=== PATIENT | female | born 1995 | race Two or more races ===

== ENCOUNTER 2017-08-28 23:29 | Emergency (ER) | payer OTHER ==
[~2017-08-28] VITALS: Ht 162.6 cm; Wt 47.6 kg
[2017-08-29 00:05] LABS: Urine Bacteria NONE SEEN /hpf (None Seen); Urine Blood Negative /uL (Negative); Urine Mucus FEW (None Seen); Urine Specific Gravity 1.037 (1.001-1.035); Urine WBC 2 /hpf (0 - 5)
[2017-08-29 01:04] LABS: Basophils # (auto) 0 uL; Basophils % (auto) 0.6 % (0.0-2.0); Eosinophils # (auto) 0.1 uL; Eosinophils % (auto) 1.2 % (0.0-7.0); Hematocrit 37.5 % (36.0-46.0); Hemoglobin 12.4 g/dL (12.2-16.2); Lymphocytes # (auto) 1.9 uL; Lymphocytes % (auto) 34.6 % (10.0-50.0); Mean Corpuscular Hemoglobin 28.7 pg (28.0-32.0); Mean Corpuscular Hgb Conc. 33.1 g/dL (32.0-36.0); Mean Corpuscular Volume 86.8 fL (80.0-100.0); Monocytes # (auto) 0.4 uL; Monocytes % (auto) 7.2 % (0.0-12.0); Neutrophils % (auto) 56.4 % (37.0-80.0); Nucleated Red Blood Cells % 0.1 %; Platelet Count (auto) 193 10^3/uL (140-450); Red Blood Cells 4.33 10^6/uL (4.0-5.20); Red Cell Distribution Width 13.8 % (11.8-14.3); White Blood Cell 5.4 10^3/uL (4.4-10.8)
[2017-08-29 02:01] LABS: Albumin 3.8 g/dL (3.4-5.0); BUN/Creatinine Ratio 15.9; Bilirubin, Total 0.3 mg/dL (0.2-1.0); Calcium 9.2 mg/dL (8.5-10.1); Total Protein 7.3 g/dL (6.4-8.2)
[2017-08-29 02:52] LABS: Potassium 3.8 mmol/L (3.5-5.1)
[2017-08-29 07:10] VITALS: BP 98/71
[2017-08-29] MEDS ORDERED: PANTOPRAZOLE 40 MG TAB PO ONE (07:30)
== END 2017-08-29 07:22 | disposition home or self-care (01) ==
LOC: ER 23:32
DX: N39.0 Urinary tract infection, site not specified (principal)
CPT/HCPCS: 36415; 80053; 81001; 81025; 85025

== ENCOUNTER 2021-07-19 22:30 | Emergency (ER) | payer MEDICAID ==
[~2021-07-19] VITALS: Ht 162.6 cm; Wt 47.6 kg
[2021-07-19 22:30] VITALS: BP 105/68
== END 2021-07-20 03:38 | disposition left against medical advice (07) ==
LOC: ER 22:30
DX: J02.9 Acute pharyngitis, unspecified (principal); Z53.21 Procedure and treatment not carried out due to patient leaving prior to being seen by health care provider

== ENCOUNTER 2024-10-30 21:09 | Emergency (ER) | payer MEDICAID ==
[~2024-10-30] VITALS: Ht 162.6 cm; Wt 50.0 kg
[2024-10-30 21:52] VITALS: BP 110/76; TEMP 98.6
[2024-10-30] MEDS: methylPREDNISolone SOD SUCC 125 MG/2 ML VL IM ONE (21:56)
[2024-10-30] MEDS: ACETAMINOPHEN 325 MG TAB PO ONE (21:56)
[2024-10-30 21:59] VITALS: PULSE 86; RESP 16; O2SAT 98
[2024-10-30] MEDS ORDERED: LORA10CA PO (22:03)
[2024-10-30] MEDS ORDERED: PRED20TA2 PO (22:03)
[2024-10-30] MEDS: diphenhdrAMINE HCL 50 MG/1 ML VL IM ONE (22:03)
[2024-10-30] MEDS ORDERED: ACET500T58 PO (22:03)
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
--- NOTE | 2024-10-30 22:47 | DVH ---
CLINICAL INDICATION: right sided facial pain TECHNIQUE: XY FACIAL BONES LIMITED Comparison: None FINDINGS/IMPRESSION: : There is no definite evidence of acute fracture or dislocation. No radiopaque foreign body in the visualized orbits. The visualized paranasal sinuses and mastoid air cells are grossly clear although not optimally evalu ated by radiograph. There are braces in the maxillary and mandibular dentition.
== END 2024-10-30 22:55 | disposition left against medical advice (07) ==
LOC: ER 21:09
DX: S00.83XA Contusion of other part of head, initial encounter (principal); L50.9 Urticaria, unspecified; T78.40XA Allergy, unspecified, initial encounter; Y08.89XA Assault by other specified means, initial encounter; Y93.89 Activity, other specified; Y92.89 Other specified places as the place of occurrence of the external cause; Y99.8 Other external cause status
CPT/HCPCS: 70140; 96372; 99284; J1200; J2919